=== PATIENT | female | born 1960 | race Two or more races ===

== ENCOUNTER 2016-12-05 11:26 | Emergency (ER) | payer OTHER ==
[~2016-12-05] VITALS: Ht 157.5 cm; Wt 81.7 kg
[~2016-12-05 11:26] MED LIST: COLACE100 M1 PO; CYCLOBENZAPRINE10 MG PO; DECADRON4 MG PO; GEMFIBROZIL600 M2 PO; MACROBID 100 M100 M1 PO; MELATONIN3 M2 PO; NEURONTIN300 MG PO; PERCOCET 5-3251 EACH PO; PERCOCET 5/3251 TAB PO; TYLENOL #31 TA2 PO; VALIUM5 MG PO; ZOFRAN4 MG PO; [UNRECOGNIZED DRUG - OTHER]
[2016-12-05] MEDS ORDERED: THERMAZENE50 GM TP (11:40)
[2016-12-05] MEDS ORDERED: KEFLEX500 M4 PO (11:41)
[2016-12-05 12:56] LABS: BASO % 0.4 % (0-2); EOS % 1.1 % (0-7); EOSINOPHIL ABSOLUTE COUNT 0.1 tho/cmm (0.0-0.7); HCT-HEMATOCRIT 39.6 % (34.0-49.0); HGB-HEMOGLOBIN 13.3 gm/dl (12.0-15.5); LYMPH % 25.7 % (20-45); LYMPH ABSOLUTE COUNT 1.9 tho/cmm (0.8-4.5); MCH (MEAN CORPUSCULAR HGB) 28.6 pg (28.0-32.0); MCHC MEAN CORPUSCULAR HGB CONC 33.6 % (32.0-36.0); MCV (MEAN CELL VOLUME) 85.2 fl (82.0-96.0); MEAN PLATELET VOLUME 9.5 cmc (9.4-12.4); MONO % 4.1 % (0-12); MONOCYTE ABSOLUTE COUNT 0.3 tho/cmm (0.0-1.2); NEUTROPHILS % 68.7 % (40-80); PLATELET COUNT 278 tho/cmm (150-450); RED BLOOD COUNT 4.65 mil/cmm (4.00-5.20); RED CELL DISTRIBUTION WIDTH 13.3 % (12.4-16.4); WHITE BLOOD COUNT 7.3 tho/cmm (4.0-10.0)
[2016-12-05 13:17] LABS: ANION GAP 15 mmol/L (0-20); BLOOD UREA NITROGEN 14 mg/dl (6-24); CARBON DIOXIDE-VENOUS 25 mmol/L (22-32); CHLORIDE 106 mmol/l (96-110); CREATININE 0.71 mg/dl (0.50-1.10); GLUCOSE 184 mg/dL (70-110); POTASSIUM 3.5 mmol/L (3.7-5.1); SODIUM 142 mmol/L (135-145); eGFR VALUE FOR BLACK >90 mL/Min
[2016-12-05 13:28] LABS: PROCALCITONIN <0.05 ng/ml (0.05-0.09)
== END 2016-12-05 14:01 ==
LOC: EDMED 11:26
PROVIDERS: Nurse Practitioner Family
DX: G89.18 Other acute postprocedural pain (principal); M79.675 Pain in left toe(s); E11.9 Type 2 diabetes mellitus without complications
CPT/HCPCS: J1885; J7030